=== PATIENT | male | born 1985 | race Caucasian/White ===

== ENCOUNTER 2018-08-26 06:00 | Emergency (ER) | payer OTHER | END 2018-08-26 06:40 | disposition home or self-care (01) | LOC: FTE 06:00 | DX: Z76.0 Encounter for issue of repeat prescription (principal); E11.9 Type 2 diabetes mellitus without complications; F17.210 Nicotine dependence, cigarettes, uncomplicated; Z79.4 Long term (current) use of insulin | CPT/HCPCS: 99281; Z7502 ==

== ENCOUNTER 2018-09-25 05:24 | Emergency (ER) | payer OTHER | END 2018-09-25 06:45 | disposition home or self-care (01) | LOC: FTE 05:24 | DX: S60.512A Abrasion of left hand, initial encounter (principal); E11.9 Type 2 diabetes mellitus without complications; F17.210 Nicotine dependence, cigarettes, uncomplicated; X58.XXXA Exposure to other specified factors, initial encounter; Y92.9 Unspecified place or not applicable; Z76.0 Encounter for issue of repeat prescription; Z79.4 Long term (current) use of insulin | CPT/HCPCS: 99283; Z7502 ==

== ENCOUNTER 2018-10-25 14:52 | Emergency (ER) | payer SELFPAY, OTHER | END 2018-10-25 17:20 | disposition left against medical advice (07) | LOC: FTE 14:52 | DX: Z53.21 Procedure and treatment not carried out due to patient leaving prior to being seen by health care provider (principal) ==